=== PATIENT | female | born 1995 | race Caucasian/White ===

== ENCOUNTER 2016-06-16 03:08 | Emergency (ER) | payer SELFPAY ==
[2016-06-16] MEDS ORDERED: XYLOCAINE 2% INFILTRATI ONE (03:35)
[2016-06-16] MEDS ORDERED: MORPHINE ONE ×2 (03:39→04:05)
[2016-06-16] MEDS ORDERED: ZOFRAN ONE (03:39)
[2016-06-16] MEDS ORDERED: DIPRIVAN 10 MG/ML 100 ML IV ONE (04:04)
[2016-06-16] MEDS ORDERED: NACL 0.9% 1000 ML 1,000 ML ONE (04:05)
[2016-06-16] MEDS ORDERED: NACL 0.9% 1000 ML 1,000 ML IV ONE (04:09)
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
[2016-06-16] MEDS ORDERED: DIPRIVAN 10 MG/ML IV ONE (04:29)
[2016-06-16] MEDS ORDERED: MORPHINE IV ONE ×2 (04:49→04:55)
[2016-06-16] MEDS ORDERED: ZOFRAN IV ONE (04:49)
[2016-06-16 05:52] VITALS: BP 143/80
--- NOTE | 2016-06-16 09:46 | XRay Report ---
RIGHT SHOULDER, 3 VIEWS History: Pain, deformity. Findings: An anterior, inferior dislocation at the right glenohumeral joint is identified. No obvious fracture. The remainder of the examination is normal. Impression: Anterior, inferior dislocation.
--- NOTE | 2016-06-16 09:47 | XRay Report ---
RIGHT SHOULDER, ONE VIEW History: Postreduction film. Dislocation. Findings: The anterior, inferior dislocation at the right shoulder has been reduced since 0329 hours and is now anatomic in alignment. No obvious fracture. Impression: Successful reduction of the right shoulder dislocation.
== END 2016-06-16 06:07 | disposition home or self-care (01) ==
LOC: ED 03:08
DX: S43.004A Unspecified dislocation of right shoulder joint, initial encounter (principal); Y04.0XXA Assault by unarmed brawl or fight, initial encounter; Y93.72 Activity, wrestling; Y92.9 Unspecified place or not applicable; Y99.9 Unspecified external cause status; Z87.891 Personal history of nicotine dependence
CPT/HCPCS: 23650; 73020; 73030; 96361; 96374; 96375; 99284; J2270; J2405; J2704; J7030